=== PATIENT | male | born 1975 | race Caucasian/White ===

== ENCOUNTER 2021-07-11 12:06 | Emergency (ER) | payer BC ==
[~2021-07-11] VITALS: Ht 177.8 cm; Wt 110.0 kg
[2021-07-11] MEDS ORDERED: LIDOcaine 1% W/epiNEPHrine 1:200,000 10ml vial IJ ONE (12:15)
[2021-07-11 12:20] VITALS: BP 119/79
[2021-07-11] MEDS ORDERED: DOXY100C76 PO (15:36)
[2021-07-11] MEDS ORDERED: DOXYCYCLINE 100MG CAPSULE PO STA (15:37)
[2021-07-11] MEDS ORDERED: TETanus/Pertussis (Acell)/Diphther VAC/PF (Tdap-Adult) 0.5ml syringe IMVAC ONE (15:45)
== END 2021-07-11 16:59 | disposition home or self-care (01) ==
LOC: ER 12:07
DX: S81.812A Laceration without foreign body, left lower leg, initial encounter (principal); Z79.899 Other long term (current) drug therapy; W26.8XXA Contact with other sharp object(s), not elsewhere classified, initial encounter; Y93.89 Activity, other specified; Y92.89 Other specified places as the place of occurrence of the external cause; Y99.8 Other external cause status
CPT/HCPCS: 12032; 90471; 90715; 99284